=== PATIENT | female | born 1935 | race Caucasian/White ===

== ENCOUNTER 2019-11-16 10:14 | Observation (INO) | payer OTHER, MEDICARE ==
[~2019-11-16] VITALS: Ht 154.9 cm; Wt 53.2 kg
--- NOTE | 2019-11-16 10:26 | NUR ---
PT TO ROOM VIA [facility]
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
--- NOTE | 2019-11-16 11:30 | NUR ---
PT RESTING ON STRETCHER
[2019-11-16 11:46] LABS: HEMATOCRIT 40.6 % (37.0-47.0); HEMOGLOBIN 13.1 g/dl (12.0-16.0); IMMATURE GRANULOCYTES 0.7 % (0.0-5.0); MEAN CELL VOLUME 88.1 fL CALC (80.0-100.0); MEAN CORPUSCULAR HGB 28.4 pG CALC (26.0-32.0); MEAN CORPUSCULAR HGB CONC 32.3 g/L CALC (32.0-36.0); NEUT# 2.84 thou/uL (2.00-7.15); RED BLOOD COUNT 4.61 mill/uL (4.20-5.60); RED CELL DISTRI WIDTH 13.4 % (11.5-15.5)
[2019-11-16 12:01] LABS: ALBUMIN 4.5 g/dL (3.2-5.0); ALKALINE PHOSPHATASE 81 u/l (38-126); ANION GAP 11 (6-22 (CALC)); BILIRUBIN, TOTAL 0.7 mg/dL (0.0-1.4); BUN 18 mg/dL (8-23); BUN/CREATININE RATIO 23 (12-20 (CALC)); CARBON DIOXIDE 27 mmol/l (22-30); CHLORIDE 104 mmol/l (95-108); CREATININE 0.8 mg/dL (0.5-1.0); GFR > 60 ML/MIN (>=60 (CALC)); GFR FOR AFR.AMER. > 60 ML/MIN (>=60 (CALC)); LIPASE 60 u/l (23-300); POTASSIUM 4.3 mmol/l (3.5-5.1); SGOT/AST 32 u/l (9-36); SODIUM 138 mmol/l (137-146); TOTAL PROTEIN 7.4 g/dL (6.3-8.2)
--- NOTE | 2019-11-16 12:08 | NUR ---
PT POSITIONED FOR COMFORT. ICE BAGS APPLIED TO BILAT TIBIA
[2019-11-16 13:10] LABS: URINE BILIRUBIN - DIPSTICK NEGATIVE (NEGATIVE); URINE BLOOD DIPSTICK NEGATIVE (NEGATIVE); URINE COLOR YELLOW; URINE GLUCOSE - DIPSTICK NEGATIVE (NEGATIVE); URINE KETONE TRACE mg/dL (NEGATIVE); URINE LEUK ESTERASE TRACE (NEGATIVE); URINE NITRITE - DIPSTICK NEGATIVE (Negative); URINE PROTEIN - DIPSTICK NEGATIVE (NEG-TRACE); URINE UROBILINOGEN - DIPSTICK 0.2 E.U./dL (0.2)
--- NOTE | 2019-11-16 13:33 | NUR ---
PT RETURNED FROM CT. MONITORS IN PLACE. PT PLACE ON BEDPAN
--- NOTE | 2019-11-16 14:03 | NUR ---
PT REPORTS PAIN RIGHT TIBIA. EVEN BLANKET ON AREA CAUSES PAIN. DR OSEGUERA AWARE
--- NOTE | 2019-11-16 14:07 | NUR ---
PT MEDICATED FOR PAIN
--- NOTE | 2019-11-16 14:08 | NUR ---
DR OSEGUERA AT BEDSIDE. SPOKE WITH PATIENT
--- NOTE | 2019-11-16 14:30 | NUR ---
PT MEDICATED WITH ADDITIONAL PAIN MEDICATION FOR PAIN / RIGHT TIBIA
--- NOTE | 2019-11-16 15:31 | NUR ---
PT BELONGINGS GOING HOME WITH DAUGHTER. DAUGHTER CONTACT INFO ALVARO BUCHANAN [phone]
--- NOTE | 2019-11-16 15:35 | NUR ---
PT REPORTS PAIN 2/10. RESTING COMFORTABLY ON STRETCHER. AWAITING ADMISSION
--- NOTE | 2019-11-16 16:38 | NUR ---
PT POSITIONED FOR COMFORT. GIVEN WARM BLANKET AND WATER. FRIENDS AT BEDSIDE
--- NOTE | 2019-11-16 16:40 | NUR ---
NO ANSWER ON MED SURG AT THIS TIME
--- NOTE | 2019-11-16 16:58 | NUR ---
REPORT GIVEN TO RAY MARCOSTURN SUPERVISOR
--- NOTE | 2019-11-16 17:55 | NUR ---
PT ARRIVED TO UNIT VIA STRETCHER WITH ER STAFF; ALERT AND ORIENTED. AMBULATES TO BED WITH STEADY GAIT AND PAIN TO LEGS. C/O MILD PAIN TO HEMATOMA TO RIGHT LOWER LEG; STATES THAT MORPHINE WAS EFFECTIVE FOR LISA. RESPIRATIONS EVEN AND UNLABORED ON ROOM AIR. PLAN OF CARE REVIEWED. PT ENCOURAGED TO VERBALIZE CONCERNS. STATES UNDERSTANDING. SAFETY MEASURES IN PLACE. CALL LIGHT WITHIN REACH.
--- NOTE | 2019-11-16 18:05 | NUR ---
TRANSPORTED VIA STRETCHER TO [facility]
--- NOTE | 2019-11-16 18:30 | NUR ---
SITTING UP EATING DINNER. PLEASANT AND TALKATIVE. IV SITE APPEARS HEALTHY AND FLUSHES. PHOTOS TAKEN OF SKIN TEAR TO RFA AND HEMATOMAS TO BLE.
[2019-11-16 19:26] VITALS: BP 122/54
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
--- NOTE | 2019-11-17 00:30 | NUR ---
PT APPEARS TO BE SLEEPING COMFORTABLY. NO APPARENT DISTRESS. RESP REG & UNLABORED. CALL MENDEZ REMAINS WITHIN REACH. SAFETY AND FALL INTERVENTION REMAIN UNCHANGED.
--- NOTE | 2019-11-17 02:15 | NUR ---
PT MEDICATED FOR C/O ACHING PAIN 02/14 TO LLE. MEDICATED FOR PAIN. SEE MAR FOR ADMIN AND SUBSEQUENT F/U. PROVIDED WITH ANOTHER BLANKET PER REQUEST. DENIES FURTHER NEEDS AT THIS TIME. CALL MENDEZ REMAINS WITHIN REACH, AGREES TO CALL PRN.
[2019-11-17 04:00] VITALS: BP 114/57
--- NOTE | 2019-11-17 04:28 | NUR ---
PT APPEARS TO BE SLEEPING COMFORTABLY. NO APPARENT DISTRESS. RESP REG & UNLABORED. CALL MENDEZ REMAINS WITHIN REACH. SAFETY AND FALL INTERVENTION REMAIN UNCHANGED.
--- NOTE | 2019-11-17 04:55 | NUR ---
COFFEE PROVIDED PER REQUESTS, PT SITTING UP DRINKING COFFEE. DENIES PAIN. DENIES FURTHER NEEDS. CALL MENDEZ WITHIN REACH, AGREES TO CALL PRN. SAFETY/FALL INTERVENTIONS REMAIN IN PLACE.
--- NOTE | 2019-11-17 07:30 | NUR ---
REPORT RECEIVED FROM PRITI NIELSEN. PT SITTING UP IN BED HIGH FOWLERS; ALERT AND ORIENTED. SMILING AND PLEASANT. REPORTS THAT HER PAIN IS IMPROVED AND THE PAIN MEDIATION HAS BEEN EFFECTIVE. C/O MILD PAIN TO RLE HEMATOMA. PLAN OF CARE REVIEWED. PT ENCOURAGED TO VERBALIZE CONCERNS. STATES UNDERSTANDING. SAFETY MEASURES IN PLACE. CALL LIGHT WITHIN REACH.
[2019-11-17 08:00] VITALS: BP 114/45
--- NOTE | 2019-11-17 11:51 | NUR ---
VISITORS AT BEDSIDE ALONG WITH DIETARY. SOME SWELLING AND BRUISING NOTED INNER RIGHT AC AREA OF ARM; IV SITE HAS GOOD BLOOD RETURN AND FLUSHES WELL. FLUIDS INFUSING WITHOUT DIFFICULTY.
[2019-11-17] MEDS ORDERED: TRAMADOL HCL50 MG PO (12:56)
[2019-11-17 15:28] VITALS: BP 154/65
--- NOTE | 2019-11-17 16:18 | NUR ---
RT AT BEDSIDE ALONG WITH FAMILY.
--- NOTE | 2019-11-17 16:30 | NUR ---
IV site discontinued, cath intact. No edema , no redness, voices no discomfort.
--- NOTE | 2019-11-17 16:41 | NUR ---
Discharge instructions given. Patient verbalizes understanding of same. Discharged in stable condition via Wheelchair to Home with family. All belongings sent with pt.
== END 2019-11-17 16:40 | disposition home or self-care (01) | DRG 605 ==
LOC: ED 10:14 → ED-I 16:00 → ED 16:21 → MS2 16:22
PROVIDERS: Family Medicine; ADMIT Internal Medicine; ATTEND Internal Medicine
DX: S80.11XA Contusion of right lower leg, initial encounter (principal); S80.12XA Contusion of left lower leg, initial encounter; E78.5 Hyperlipidemia, unspecified; K21.9 Gastro-esophageal reflux disease without esophagitis; M25.512 Pain in left shoulder; V49.40XA Driver injured in collision with unspecified motor vehicles in traffic accident, initial encounter; Z79.02 Long term (current) use of antithrombotics/antiplatelets; Z86.73 Personal history of transient ischemic attack (TIA), and cerebral infarction without residual deficits
CPT/HCPCS: G0378; Q9967